=== PATIENT | female | born 1980 | race Caucasian/White ===

== ENCOUNTER 2024-08-11 19:13 | Emergency (ER) | payer OTHER, SELFPAY ==
[2024-08-11 19:21] VITALS: BP 113/81
[2024-08-11 20:07] LABS: % Basophils 0.4 % (0-2); % Eosinophils 1.3 % (0-6); % Immature Granulocytes 0.3 % (0-0.5); % Lymphocytes 15.3 % (20.5-51.1); % Monocytes 13.9 % (1.7-9.3); % Neutrophils 68.8 % (42.2-75.2); Absolute Eosinophils 0.1 10^3/uL (0-0.7); Absolute Monocytes 0.9 10^3/uL (0.1-0.6); Absolute Neutrophils 4.6 10^3/uL (1.4-6.5); Hematocrit 34.5 % (37.0-47.0); Hemoglobin 11.3 g/dL (12.0-16.0); Mean Corp Hgb Conc. 32.8 g/dL (33.0-37.0); Mean Corpuscular Hgb 25.2 pg (27.0-31.0); Mean Corpuscular Volume 76.8 fL (81.0-99.0); Mean Platelet Volume 10.4 fL (7.4-10.4); Nucleated Red Blood Cells % 0 %; Platelet Count 325 10^3/uL (130-400); Red Blood Cell Count 4.49 10^6/uL (4.20-5.40); Red Cell Dist. Width 15.6 % (11.5-14.5); White Blood Cell Count 6.7 10^3/uL (4.8-10.8)
[2024-08-11 20:19] LABS: HCG, Serum Qualitative Screen Negative
[2024-08-11 20:23] LABS: ALT (SGPT) 13 U/L (0-35); AST (SGOT) 20 U/L (14-36); Alkaline Phosphatase 76 U/L (38-126); Blood Urea Nitrogen 8 mg/dl (7-17); Calcium 8.9 mg/dl (8.4-10.2); Carbon Dioxide 24 mmol/L (22-30); Chloride 105 mmol/L (98-107); Glucose 159 mg/dl (70-99); Potassium 3.4 mmol/L (3.5-5.1); Sodium 137 mmol/L (135-145); Total Bilirubin 0.7 mg/dl (0.2-1.3); Total Protein 6.3 g/dl (6.3-8.2); eGFR > 60.00
[2024-08-12 00:03] VITALS: BMI 22.7
--- NOTE | 2024-08-12 00:14 | ED.GENMED ---
History of Present Illness
General
Chief Complaint: Abdominal Pain
Source: patient
Time Seen by Provider: 08/12/24 00:05
History of Present Illness
History of Present Illness:
43-year-old female presents to the emergency room complaining of abdominal pain. Pain is located in the right lower quadrant. Radiates a bit to the side. No back pain. No dysuria, frequency or vaginal discharge. Patient has been taking
Augmentin for a sinus infection. She states that she has been having low-grade temperatures for the past week or so. Temp was 100.5 this morning. Patient has had laparoscopic procedures for endometriosis. Patient also has history of ovarian cyst.
Phy Exam
Physical Exam
Physical Exam:
General: Awake, Alert, Oriented X3. No acute distress.
Vitals: unremarkable
Head: Atraumatic
Eyes: Pupils equal, EOMI
Throat: Airway intact, no exudates
Neck: Trachea midline
Lungs: Clear and equal b/l
Heart: Regular rate, no murmurs
Abd: Soft, mild tenderness right lower quadrant, No pulsatile mass
Back: No CVA tenderness to percussion
Neuro: Nonfocal
Skin: Warm, dry, no rash
Extremities: pulses equal b/l, no edema
Course
Orders/Labs/Results
Orders:
Orders
08/11/24 19:28
Test Result ONCE
08/11/24 19:35
Complete Blood Count/With Diff Urgent
Comprehensive Metabolic Panel Urgent
HCG, Serum Qualitative Screen Urgent
08/12/24 00:12
Iohexol [Omnipaque] See Protocol PO NOW STA
Ketorolac [Toradol] 15 mg IV NOW STA
08/12/24 00:13
CT Abd/pel W Iv And Oral Contr Urgent
Comment:
Reason For Exam: rlq pain
0.9% Sodium Chloride 500 ml [Nss] 500 ml IV BOLUS
08/12/24 02:20
Urinalysis Reflex To Culture Urgent
Date Specimen was Collected: 08/12/24
Time Specimen was Collected: 02:19
Urine Microscopic Reflex Cult Urgent
Abnormal Lab Results
08/11/24 08/12/24
19:35 02:20
Hgb 11.3 L g/dL
(12.0-16.0)
Hct 34.5 L %
(37.0-47.0)
MCV 76.8 L fL
(81.0-99.0)
MCH 25.2 L pg
(27.0-31.0)
MCHC 32.8 L g/dL
(33.0-37.0)
RDW 15.6 H %
(11.5-14.5)
Absolute Lymphs (auto) 1.0 L 10^3/uL
(1.2-3.4)
Absolute Monos (auto) 0.9 H 10^3/uL
(0.1-0.6)
Lymphocytes % 15.3 L %
(20.5-51.1)
Monocytes % 13.9 H %
(1.7-9.3)
Potassium 3.4 L mmol/L
(3.5-5.1)
Glucose 159 H mg/dl
(70-99)
Ur Occult Blood Reflex 2+ A
(Negative)
08/11/24 19:35
08/11/24 19:35
Vital Signs
Initial and Last Documented VS:
Initial Vital Signs
Temp Pulse Resp BP Pulse Ox
98.8 F 100 18 113/81 97
08/11/24 19:21 08/11/24 19:21 08/11/24 19:21 08/11/24 19:21 08/11/24 19:21
Last Documented Vital Signs
Temp Pulse Resp BP Pulse Ox
97.7 F 79 20 112/85 98
08/12/24 01:00 08/12/24 01:00 08/12/24 01:00 08/12/24 01:00 08/12/24 01:00
ED Attending Note
-
Portions of this chart may have been created with voice recognition software.� Occasional wrong word or��sound alike� substitutions may have occurred due to the inherent limitations of voice recognition software.
Discharge Plan
Departure
Patient with high blood pressure during this ER visit?: No
Condition: Good
Discharge Problem:
Abdominal pain, Ovarian cyst
Instructions: Ovarian cysts, Abdominal Pain
Prescriptions:
No Action
Augmentin
1 dose PO BID
fluticasone propionate [Flonase] 50 mcg/actuation [place],Suspension
1 spray INTRANASAL DAILY
Breo Ellipta
1 inh inhalation DAILY
Referrals:
Adele Baca DO [Family Provider] -
Activity Restrictions/Additional Instructions:
Please follow-up with your placement specialist. Imaging shows that you have a 4 cm right ovarian cyst. This can be followed to make sure it resolves. No evidence of appendicitis. The portion of your lungs visualized on the CAT scan shows some changes
which are likely related to your recent COVID infection follow-up with your family doctor as well.
Interventions
Interventions:
*Risk Screen - Suicide Last Done: 08/11/24 19:21
*General Assessment Last Done: 08/11/24 19:21
*Neglect/Abuse Screening Last Done: 08/11/24 19:21
*ED COVID-19 Vaccine History Last Done: 08/11/24 19:21
WZ-Zycflk-Onijlwndmb Assessment Last Done: 08/12/24 00:05
ED- Neurological Assessment Last Done: 08/12/24 00:05
ED-Skin Assessment Last Done: 08/12/24 00:05
Discharge Date and Time
Print Language: OCCITAN
[2024-08-12] MEDS: OMNIPAQUE 50 ML PO (00:29)
[2024-08-12] MEDS: TORADOL 15 MG IV (00:30)
[2024-08-12] MEDS: NSS 500 IV (00:30)
[2024-08-12 01:00] VITALS: BP 112/85
[2024-08-12 02:00] VITALS: BP 118/84
[2024-08-12 02:31] LABS: Urine Albumin Negative (Neg - Trace); Urine Bilirubin Negative (Negative); Urine Character Clear (Clear); Urine Color Yellow; Urine Glucose Negative (Negative); Urine Ketone Negative (Negative); Urine Leukocyte Negative (Negative); Urine Nitrite Negative (Negative); Urine Occult Blood 2+ (Negative); Urine Urobilinogen Negative (Neg - 1+); Urine pH 6.5 (5.0-9.0)
[2024-08-12 04:26] LABS: Urine Squamous Cell 16-20 /LPF (Few)
[2024-08-12 04:28] LABS: Urine Bacteria Few (Negative); Urine White Cell 0-2 /HPF (0-5)
== END 2024-08-12 03:47 | disposition home or self-care (01) ==
LOC: EMR 19:13
PROVIDERS: Emergency Medicine; EMERGENCY PHYSICIAN Emergency Medicine; FAMILY PHYSICIAN Family Medicine
DX: R10.31 Right lower quadrant pain (principal); R50.9 Fever, unspecified; J01.90 Acute sinusitis, unspecified; N83.201 Unspecified ovarian cyst, right side; Z86.16 Personal history of COVID-19; Z88.6 Allergy status to analgesic agent; Z88.5 Allergy status to narcotic agent; Z88.2 Allergy status to sulfonamides; Z88.8 Allergy status to other drugs, medicaments and biological substances; Z91.018 Allergy to other foods
CPT/HCPCS: 99284; 96374; 96361 ×2; 74177; 80053; 81003; 81015; 84703; 85025; Q9967